=== PATIENT | male | born 1960 | race Caucasian/White ===

== ENCOUNTER 2023-11-09 11:17 | Emergency (ER) | payer MEDICAID ==
[~2023-11-09] VITALS: Ht 182.8 cm; Wt 129.3 kg
[~2023-11-09 11:17] MED LIST: 'XANAX1 MG PO; ABILIFY20 MG PO; ASPIR LOW81 MG PO; BETAPACE120 MG PO; BIAXIN FILMTAB250 MG PO; CARAFATE1 GM PO; CARTIA XT300 MG PO; CARVEDILOL25 MG PO; CEFDINIR300 MG PO; CETIRIZINE10 MG PO; CLARITIN LIQUI-10 MG PO; Carafate1 GM/10 ML PO; Coumadin5 MG PO; DESYREL100 MG PO; FLEXERIL10 MG PO; FLOVENT DISKUS50 MCG INH; FLOVENT HF0.22 MG/AC IH; GEMFIBROZIL600 MG PO; INVOKANA100 M1 PO; LEADER NIC14 MG/24 H TD; LOTRISONE30 ML T; METFORMIN HCL500 M2 PO; MOTRIN600 MG PO; MOTRIN800 MG PO; MULTIPLE VITAM1 EAC2 PO; OXYCODONE HCL10 M1 PO; PERCOCET 325 MG1 TA5 PO; PRILOSEC20 M1 PO; PRILOSEC40 M1 PO; PRILOSEC40 MG PO; SPIRIVA18 MCG IH; TIZANIDINE4 MG PO; VENTOLIN 02.5 MG/3 M INH; VENTOLIN H0.09 MG/AC IH; VENTOLIN HFA INH; VICODIN 5/500 505 MG PO; VICODIN ES 7501 TA1 PO; VITAMIN D5000 UNI1 PO; XARE20MG PO; ZANAFLEX4 M1 PO; ZOCOR20 MG PO; Zofran4 MG PO
[2023-11-09] MEDS ORDERED: METOPROLOL TART50 M1 PO (12:02)
[2023-11-09] MEDS ORDERED: BUMETANIDE1 MG PO (12:03)
[2023-11-09] MEDS ORDERED: AMIODARONE HYD200 MG PO (12:04)
[2023-11-09] MEDS ORDERED: BUSPIRONE HCL10 MG PO (12:04)
[2023-11-09] MEDS ORDERED: GABAPENTIN400 MG PO (12:05)
[2023-11-09] MEDS ORDERED: FEOSOL325 MG PO (12:06)
[2023-11-09] MEDS ORDERED: POTASSIUM CHLO20 ME3 PO (12:07)
[2023-11-09] MEDS ORDERED: PANTOPRAZOLE SO40 MG PO (12:07)
[2023-11-09] MEDS ORDERED: LISINOPRIL5 MG PO (12:08)
[2023-11-09] MEDS ORDERED: Zaroxolyn,Diul2.5 MG PO (12:09)
[2023-11-09] MEDS ORDERED: TRULICITY3 MG/0.5 M SQ (12:11)
[2023-11-09] MEDS ORDERED: LANTUS SOL100 UNIT/1 SC (12:12)
[2023-11-09] MEDS ORDERED: HUMALOG100 UNIT/1 SC (12:13)
[2023-11-09 12:54] LABS: BASO # 0.1 10*3/uL (0.0-0.1); BASO % 0.9 % (0.0-1.0); EOS # 0.1 10*3/uL (0.0-0.4); EOS % 1.8 % (1.0-4.0); HEMATOCRIT 53.2 % (42.0-52.0); LYMPH # 1.1 10*3/uL (1.3-4.4); LYMPH % 14.3 % (27.0-41.0); MEAN CELL VOLUME 90.3 fl (80.0-94.0); MEAN CORPUSCULAR HGB 28.5 pg (27.0-31.0); MEAN CORPUSCULAR HGB CONC 31.6 g/dl (33.0-37.0); MEAN PLATELET VOLUME 10.8 fl (9.6-12.3); MONO # 0.8 10*3/uL (0.1-1.0); MONO % 10.3 % (3.0-9.0); NEUT # 5.6 10*3/uL (2.3-7.9); NEUT % 71.8 % (47.0-73.0); PLATELET COUNT AUTOMATED 246 10*3/uL (130-400); RED BLOOD COUNT 5.89 10*6/uL (4.50-5.90); RED CELL DISTRI WIDTH 13.8 % (0-14.5); WHITE BLOOD COUNT 7.9 10*3/uL (4.8-10.8)
[2023-11-09 13:18] LABS: ALKALINE PHOSPHATASE 95 U/L (46-116); BUN 18 mg/dl (9-23); CHLORIDE 97 mmol/L (98-107); POTASSIUM 3.6 mmol/L (3.4-5.1); SGPT/ALT 80 U/L (5-49); TOTAL PROTEIN 6.7 gm/dL (6.0-8.0)
[2023-11-09] MEDS ORDERED: BENZONATATE100 M1 PO ×2 (15:47→16:02)
[2023-11-09] MEDS ORDERED: VIBRAMYCIN100 MG PO ×2 (15:47→16:02)
[2023-11-09] MEDS ORDERED: MEDROL DOSEPAK4 MG PO ×2 (15:47→16:02)
== END 2023-11-09 15:52 | disposition home or self-care (01) ==
LOC: ED 11:17
PROVIDERS: Nurse Practitioner Family
DX: J20.9 Acute bronchitis, unspecified (principal); R04.2 Hemoptysis; I25.10 Atherosclerotic heart disease of native coronary artery without angina pectoris; I11.0 Hypertensive heart disease with heart failure; I50.9 Heart failure, unspecified; K21.9 Gastro-esophageal reflux disease without esophagitis; E11.9 Type 2 diabetes mellitus without complications; F41.9 Anxiety disorder, unspecified; J44.9 Chronic obstructive pulmonary disease, unspecified; F32.A Depression, unspecified; E78.00 Pure hypercholesterolemia, unspecified; I48.91 Unspecified atrial fibrillation; Z98.890 Other specified postprocedural states; Z95.5 Presence of coronary angioplasty implant and graft; F17.210 Nicotine dependence, cigarettes, uncomplicated

== ENCOUNTER 2024-02-08 17:53 | Inpatient (IN) | payer MEDICAID ==
[~2024-02-08] VITALS: Ht 177.8 cm; Wt 162.0 kg
[2024-02-08] VITALS (11 sets, daily range): BP systolic 86–112; BP diastolic 43–64
[~2024-02-08 17:53] MED LIST changes: +AMIODARONE HYD200 MG PO; +BENZONATATE100 M1 PO; +BUMETANIDE1 MG PO; +BUSPIRONE HCL10 MG PO; +FEOSOL325 MG PO; +GABAPENTIN400 MG PO; +HUMALOG100 UNIT/1 SC; +LANTUS SOL100 UNIT/1 SC; +LISINOPRIL5 MG PO; +MEDROL DOSEPAK4 MG PO; +METOPROLOL TART50 M1 PO; +PANTOPRAZOLE SO40 MG PO; +POTASSIUM CHLO20 ME3 PO; +TRULICITY3 MG/0.5 M SQ; +VIBRAMYCIN100 MG PO; +Zaroxolyn,Diul2.5 MG PO
[2024-02-08 18:09] LABS: ABG BASE EXCESS 7.7 mmol/L (-2.0-2.0)
[2024-02-08 18:12] LABS: BASO % 0.1 % (0.0-1.0); EOS % 0.2 % (1.0-4.0); HEMATOCRIT 39.7 % (42.0-52.0); LYMPH # 0.4 10*3/uL (1.3-4.4); LYMPH % 3.7 % (27.0-41.0); MEAN CELL VOLUME 100.5 fl (80.0-94.0); MEAN CORPUSCULAR HGB 27.8 pg (27.0-31.0); MEAN CORPUSCULAR HGB CONC 27.7 g/dl (33.0-37.0); MEAN PLATELET VOLUME 10.6 fl (9.6-12.3); MONO # 0.8 10*3/uL (0.1-1.0); MONO % 8.2 % (3.0-9.0); NEUT # 8.4 10*3/uL (2.3-7.9); NEUT % 87.2 % (47.0-73.0); PLATELET COUNT AUTOMATED 276 10*3/uL (130-400); RED BLOOD COUNT 3.95 10*6/uL (4.50-5.90); RED CELL DISTRI WIDTH 14.6 % (0-14.5); WHITE BLOOD COUNT 9.6 10*3/uL (4.8-10.8)
[2024-02-08 18:15] LABS: ARTERIAL BLOOD GAS PH 7.147 (7.35-7.45)
[2024-02-08 18:37] LABS: ALKALINE PHOSPHATASE 187 U/L (46-116); BUN 34 mg/dl (9-23); CHLORIDE 99 mmol/L (98-107); LIPASE 33 U/L (12-53); POTASSIUM 5.2 mmol/L (3.4-5.1); SGPT/ALT 50 U/L (5-49); TOTAL PROTEIN 6.4 gm/dL (6.0-8.0)
[2024-02-08] MEDS ORDERED: Ceftriaxone Sodium 1 GM/10 ML SYR IV ONE (18:50)
[2024-02-08] MEDS ORDERED: Albuterol Sulf/Ipratropium 3 ML VIAL NEB ONE (18:50)
[2024-02-08] MEDS ORDERED: methylPREDNISolone sod succ 125 MG VIAL IV ONE (18:50)
[2024-02-08] MEDS ORDERED: GABAPENTIN600 MG PO (18:50)
[2024-02-08] MEDS ORDERED: AZITHROMYCIN 250 ML IV ONE (18:50)
[2024-02-08] MEDS ORDERED: CLARITIN10 MG PO (18:55)
[2024-02-08] MEDS ORDERED: MAGNESIUM OXID400 MG PO (18:56)
[2024-02-08] MEDS ORDERED: OXYCODONE-ACET1 EAC3 PO (18:59)
[2024-02-08] MEDS ORDERED: TRULICITY3 MG/0.5 M SQ (19:00)
[2024-02-08 20:31] LABS: ABG BASE EXCESS 3.2 mmol/L (-2.0-2.0)
[2024-02-08 20:33] LABS: ARTERIAL BLOOD GAS PH 7.184 (7.35-7.45)
[2024-02-08] MEDS ORDERED: PROPOFOL 100 ML IV ONE (21:02)
[2024-02-08] MEDS ORDERED: NOREPINEPHRINE BITARTRATE/D5W 250 ML IV ONE (21:02)
[2024-02-08] MEDS ORDERED: ETOMIDATE 20 MG/10 ML VIAL IV ONE (21:20)
[2024-02-08] MEDS ORDERED: ROCURONIUM BROMIDE 50 MG/5 ML SYRINGE IV ONE (21:20)
[2024-02-08] MEDS ORDERED: PROPOFOL 200 MG/20 ML VIAL IV ONE (21:20)
[2024-02-08] MEDS ORDERED: NOREPINEPHRINE BITARTRATE/D5W 250 ML IV SCH (21:35)
[2024-02-08 22:46] LABS: ABG BASE EXCESS 4.4 mmol/L (-2.0-2.0); ARTERIAL BLOOD GAS PH 7.27 (7.35-7.45)
[2024-02-08] MEDS ORDERED: ACETAMINOPHEN 325 MG/10.15 ML UDC PO PRN (23:50)
[2024-02-08] MEDS ORDERED: Acetaminophen/Hydrocodone 5 MG/325 MG TABLET PO PRN (23:50)
[2024-02-08] MEDS ORDERED: BISACODYL 5 MG TAB PO PRN (23:50)
[2024-02-08] MEDS ORDERED: Midazolam Hydrochloride 5 MG/5 ML VIAL IV PRN (23:55)
[2024-02-08] MEDS ORDERED: ACETAMINOPHEN 650 MG SUPP R PRN (23:55)
[2024-02-08] MEDS ORDERED: PROPOFOL 50 ML IV SCH (23:55)
[2024-02-08] MEDS ORDERED: Albuterol Sulf/Ipratropium 3 ML VIAL NEB SCH (23:55)
[2024-02-09] VITALS (91 sets, daily range): BP systolic 88–121; BP diastolic 41–63
[2024-02-09] MEDS ORDERED: Piperacillin Sodium/Tazobact 50 ML IV SCH ×2 (00:05→02:40)
[2024-02-09] MEDS ORDERED: Vancomycin Hydrochloride 1,000 MG in SODIUM CHLORIDE 0.9% 250 ML IV SCH ×2 (00:05→01:00)
[2024-02-09] MEDS ORDERED: FUROSEMIDE 40 MG/4 ML VIAL IV SCH ×2 (00:05→10:00)
[2024-02-09] MEDS ORDERED: DEXTROSE 10 % IN WATER 250 ML IV PRN (02:15)
[2024-02-09] MEDS ORDERED: FUROSEMIDE 40 MG/4 ML VIAL IV ONE (02:45)
[2024-02-09 05:44] LABS: FREE T4 1.24 ng/dl (0.89-1.76); POTASSIUM 4.8 mmol/L (3.4-5.1); TOTAL PROTEIN 5.9 gm/dL (6.0-8.0)
[2024-02-09 05:45] LABS: VITAMIN D, 25-HYDROXY 25.6 ng/mL (30-100)
[2024-02-09 06:12] LABS: ACT PARTIAL THROMBO TIME 25.6 SECONDS (20.0-32.1)
[2024-02-09 06:13] LABS: HEMATOCRIT 35.9 % (42.0-52.0); MANUAL DIFF REFLEX YES; MEAN CORPUSCULAR HGB 27.6 pg (27.0-31.0); MEAN CORPUSCULAR HGB CONC 28.4 g/dl (33.0-37.0); MEAN PLATELET VOLUME 11.2 fl (9.6-12.3); PLATELET COUNT AUTOMATED 245 10*3/uL (130-400); RED CELL DISTRI WIDTH 14.4 % (0-14.5); WHITE BLOOD COUNT 8.9 10*3/uL (4.8-10.8)
[2024-02-09 06:29] LABS: BURR CELLS FEW; PLATELET SUFFICIENCY NORMAL (NORMAL); POLYCHROMASIA SLIGHT; ROULEAUX SLIGHT; TOTAL CELLS COUNTED 100 #CELLS
[2024-02-09] MEDS ORDERED: INSULIN LISPRO 1 UNIT/0.01 ML SQ SCH (07:30)
[2024-02-09 07:49] LABS: ABG BASE EXCESS 7.9 mmol/L (-2.0-2.0); ARTERIAL BLOOD GAS PH 7.389 (7.35-7.45)
[2024-02-09] MEDS ORDERED: Vancomycin Hydrochloride 1,000 MG VIAL IV ONE (07:49)
[2024-02-09] MEDS ORDERED: SODIUM CHLORIDE 0.9% 250 ML BAG IV ONE (07:49)
[2024-02-09] MEDS ORDERED: Chlorhexidine Gluconate 15 ML MOUTHWASH T SCH (10:00)
[2024-02-09] MEDS ORDERED: methylPREDNISolone sod succ 40 MG VIAL IV SCH (10:00)
[2024-02-09] MEDS ORDERED: Pantoprazole Sodium 40 MG VIAL IV SCH (10:00)
[2024-02-09] MEDS ORDERED: Enoxaparin Sodium 40 MG/0.4 ML SYR SC SCH (10:00)
[2024-02-09] MEDS ORDERED: PROPOFOL 100 ML IV SCH (11:05)
[2024-02-09] MEDS ORDERED: ROCURONIUM BROMIDE 50 MG/5 ML SYRINGE IV ONE (11:47)
[2024-02-09] MEDS ORDERED: ETOMIDATE 20 MG/10 ML VIAL IV ONE (11:47)
[2024-02-09] MEDS ORDERED: PERFLUTREN PROTEIN-A MICROSPHR 3 ML VIAL IV ONE (11:51)
[2024-02-09] MEDS ORDERED: BUDESONIDE 0.5 MG AMP NEB SCH (13:15)
[2024-02-09] MEDS ORDERED: HEEL PROTECTOR DEVICE ONE (15:12)
[2024-02-09] MEDS ORDERED: FOAM BANDAGE HEEL T ONE (15:12)
[2024-02-09] MEDS ORDERED: PROPOFOL IV SCH (21:00)
[2024-02-09] MEDS ORDERED: VANCOMYCIN/WATER FOR INJ (PEG) 350 ML IV SCH (22:00)
[2024-02-09] MEDS ORDERED: NYSTATIN 15 GM BOT T SCH (22:00)
[2024-02-09] MEDS ORDERED: Insulin Glargine, Recombinan 1 UNIT/0.01 ML SC SCH (22:00)
[2024-02-10] VITALS (92 sets, daily range): BP systolic 95–146; BP diastolic 46–66
[2024-02-10] MEDS ORDERED: diphenhydrAMINE hydrochloride 50 MG/ML VIAL IV ONE (01:40)
[2024-02-10 06:27] LABS: BASO % 0.1 % (0.0-1.0); HEMATOCRIT 34.1 % (42.0-52.0); LYMPH # 0.3 10*3/uL (1.3-4.4); LYMPH % 1.8 % (27.0-41.0); MEAN CELL VOLUME 94.5 fl (80.0-94.0); MEAN CORPUSCULAR HGB 28.5 pg (27.0-31.0); MEAN CORPUSCULAR HGB CONC 30.2 g/dl (33.0-37.0); MEAN PLATELET VOLUME 11.1 fl (9.6-12.3); MONO # 1.3 10*3/uL (0.1-1.0); MONO % 8.6 % (3.0-9.0); NEUT # 13.4 10*3/uL (2.3-7.9); NEUT % 89.1 % (47.0-73.0); RED BLOOD COUNT 3.61 10*6/uL (4.50-5.90); RED CELL DISTRI WIDTH 15.2 % (0-14.5); WHITE BLOOD COUNT 15.1 10*3/uL (4.8-10.8)
[2024-02-10 06:45] LABS: PLATELET COUNT AUTOMATED 330 10*3/uL (130-400)
[2024-02-10 06:49] LABS: POTASSIUM 4.5 mmol/L (3.4-5.1); TOTAL PROTEIN 6.1 gm/dL (6.0-8.0)
[2024-02-10 08:01] LABS: ABG BASE EXCESS 6.5 mmol/L (-2.0-2.0); ARTERIAL BLOOD GAS PH 7.36 (7.35-7.45)
[2024-02-10] MEDS ORDERED: Cholecalciferol 5,000 IU CAP (125 MCG) PO SCH (10:00)
[2024-02-10] MEDS ORDERED: ASPIRIN ENTERIC COATED 81 MG TAB PO SCH (10:00)
[2024-02-10] MEDS ORDERED: FUROSEMIDE 40 MG/4 ML VIAL IV SCH ×2 (10:00→14:00)
[2024-02-10] MEDS ORDERED: FLUTICASONE PROPIONATE 100 mcg INHALER INH SCH (10:00)
[2024-02-10] MEDS ORDERED: FUROSEMIDE 40 MG/4 ML VIAL IV ONE (12:00)
[2024-02-10] MEDS ORDERED: DISPOSABLE IV SCH (13:30)
[2024-02-10] MEDS ORDERED: FUROSEMIDE IV SCH (13:30)
[2024-02-11] VITALS (91 sets, daily range): BP systolic 94–129; BP diastolic 44–71
[2024-02-11 06:09] LABS: BASO % 0.1 % (0.0-1.0); EOS % 0.3 % (1.0-4.0); HEMATOCRIT 34.8 % (42.0-52.0); LYMPH # 0.5 10*3/uL (1.3-4.4); LYMPH % 4.9 % (27.0-41.0); MEAN CELL VOLUME 94.8 fl (80.0-94.0); MEAN CORPUSCULAR HGB 27.5 pg (27.0-31.0); MEAN PLATELET VOLUME 11.1 fl (9.6-12.3); MONO # 1.2 10*3/uL (0.1-1.0); MONO % 11.9 % (3.0-9.0); NEUT # 8.1 10*3/uL (2.3-7.9); NEUT % 82.5 % (47.0-73.0); PLATELET COUNT AUTOMATED 268 10*3/uL (130-400); RED BLOOD COUNT 3.67 10*6/uL (4.50-5.90); RED CELL DISTRI WIDTH 15.3 % (0-14.5); WHITE BLOOD COUNT 9.8 10*3/uL (4.8-10.8)
[2024-02-11 07:59] LABS: ALKALINE PHOSPHATASE 146 U/L (46-116); CHLORIDE 96 mmol/L (98-107); POTASSIUM 3.6 mmol/L (3.4-5.1); SGPT/ALT 42 U/L (5-49); TOTAL PROTEIN 6.1 gm/dL (6.0-8.0)
[2024-02-11 08:04] LABS: BUN 29 mg/dl (9-23)
[2024-02-11] MEDS ORDERED: POTASSIUM CHLORIDE IN WATER 100 ML IV SCH (09:00)
[2024-02-11 09:06] LABS: ABG BASE EXCESS 16.3 mmol/L (-2.0-2.0); ARTERIAL BLOOD GAS PH 7.416 (7.35-7.45)
[2024-02-11] MEDS ORDERED: Enoxaparin Sodium 30 MG/0.3 ML SYR SC SCH (10:00)
[2024-02-11 14:26] LABS: BUN 26 mg/dl (9-23); CHLORIDE 96 mmol/L (98-107); POTASSIUM 3.9 mmol/L (3.4-5.1)
[2024-02-11] MEDS ORDERED: PROPOFOL 100 ML IV ONE (21:22)
[2024-02-12] VITALS (28 sets, daily range): BP systolic 109–124; BP diastolic 56–69
[2024-02-12 06:23] LABS: ALKALINE PHOSPHATASE 133 U/L (46-116); BUN 22 mg/dl (9-23); CHLORIDE 95 mmol/L (98-107); POTASSIUM 3.6 mmol/L (3.4-5.1); SGPT/ALT 38 U/L (5-49); TOTAL PROTEIN 5.9 gm/dL (6.0-8.0)
[2024-02-12 06:31] LABS: BASO % 0.2 % (0.0-1.0); EOS # 0.1 10*3/uL (0.0-0.4); EOS % 1.7 % (1.0-4.0); HEMATOCRIT 33.6 % (42.0-52.0); LYMPH # 0.4 10*3/uL (1.3-4.4); LYMPH % 6.4 % (27.0-41.0); MEAN CELL VOLUME 97.7 fl (80.0-94.0); MEAN CORPUSCULAR HGB 27.6 pg (27.0-31.0); MEAN CORPUSCULAR HGB CONC 28.3 g/dl (33.0-37.0); MEAN PLATELET VOLUME 10.9 fl (9.6-12.3); MONO # 0.6 10*3/uL (0.1-1.0); NEUT # 4.8 10*3/uL (2.3-7.9); PLATELET COUNT AUTOMATED 225 10*3/uL (130-400); RED BLOOD COUNT 3.44 10*6/uL (4.50-5.90); RED CELL DISTRI WIDTH 15.1 % (0-14.5); WHITE BLOOD COUNT 5.9 10*3/uL (4.8-10.8)
[2024-02-12 08:50] LABS: ABG BASE EXCESS 14.2 mmol/L (-2.0-2.0); ARTERIAL BLOOD GAS PH 7.444 (7.35-7.45)
[2024-02-12] MEDS ORDERED: Ceftriaxone Sodium 2 GM in SYRINGE INFUSION 20 ML IV SCH (12:00)
[2024-02-12] MEDS ORDERED: POTASSIUM CHLORIDE 20 MEQ TAB NG ONE (15:45)
[2024-02-13] VITALS (7 sets, daily range): BP systolic 111–128; BP diastolic 63–73
[2024-02-13 05:32] LABS: ALKALINE PHOSPHATASE 130 U/L (46-116); BUN 22 mg/dl (9-23); CHLORIDE 95 mmol/L (98-107); POTASSIUM 3.7 mmol/L (3.4-5.1); SGPT/ALT 38 U/L (5-49); TOTAL PROTEIN 6.1 gm/dL (6.0-8.0)
[2024-02-13 06:03] LABS: BASO % 0.2 % (0.0-1.0); EOS # 0.1 10*3/uL (0.0-0.4); EOS % 1.7 % (1.0-4.0); HEMATOCRIT 33.1 % (42.0-52.0); LYMPH # 0.3 10*3/uL (1.3-4.4); LYMPH % 5.9 % (27.0-41.0); MEAN CELL VOLUME 97.1 fl (80.0-94.0); MEAN CORPUSCULAR HGB 27.6 pg (27.0-31.0); MEAN CORPUSCULAR HGB CONC 28.4 g/dl (33.0-37.0); MEAN PLATELET VOLUME 11.1 fl (9.6-12.3); MONO # 0.5 10*3/uL (0.1-1.0); MONO % 9.3 % (3.0-9.0); NEUT # 4.7 10*3/uL (2.3-7.9); NEUT % 82.4 % (47.0-73.0); PLATELET COUNT AUTOMATED 218 10*3/uL (130-400); RED BLOOD COUNT 3.41 10*6/uL (4.50-5.90); RED CELL DISTRI WIDTH 15.2 % (0-14.5); WHITE BLOOD COUNT 5.7 10*3/uL (4.8-10.8)
[2024-02-13] MEDS ORDERED: IOHEXOL 300 MG/ML 100 ML VIAL IV ONE (11:40)
[2024-02-13] MEDS ORDERED: BARIUM SULFATE 2% 450 ML BOT PO SCH (12:00)
[2024-02-13] MEDS ORDERED: PROPOFOL IV SCH (22:00)
[2024-02-13] MEDS ORDERED: FOAM BANDAGE 1 EACH BANDAGE T ONE (22:32)
[2024-02-14] VITALS (7 sets, daily range): BP systolic 112–139; BP diastolic 53–81
[2024-02-14 04:25] LABS: BASO % 0.3 % (0.0-1.0); EOS # 0.2 10*3/uL (0.0-0.4); EOS % 3.1 % (1.0-4.0); HEMATOCRIT 33.9 % (42.0-52.0); LYMPH # 0.4 10*3/uL (1.3-4.4); LYMPH % 7.6 % (27.0-41.0); MEAN CELL VOLUME 96.3 fl (80.0-94.0); MEAN CORPUSCULAR HGB 27.8 pg (27.0-31.0); MEAN CORPUSCULAR HGB CONC 28.9 g/dl (33.0-37.0); MEAN PLATELET VOLUME 10.8 fl (9.6-12.3); MONO # 0.5 10*3/uL (0.1-1.0); MONO % 9.3 % (3.0-9.0); NEUT # 4.6 10*3/uL (2.3-7.9); NEUT % 79.2 % (47.0-73.0); PLATELET COUNT AUTOMATED 229 10*3/uL (130-400); RED BLOOD COUNT 3.52 10*6/uL (4.50-5.90); RED CELL DISTRI WIDTH 15.2 % (0-14.5); WHITE BLOOD COUNT 5.8 10*3/uL (4.8-10.8)
[2024-02-14 04:49] LABS: ALKALINE PHOSPHATASE 137 U/L (46-116); BUN 24 mg/dl (9-23); CHLORIDE 96 mmol/L (98-107); POTASSIUM 3.4 mmol/L (3.4-5.1); SGPT/ALT 43 U/L (5-49); TOTAL PROTEIN 6.2 gm/dL (6.0-8.0)
[2024-02-14 08:05] LABS: ARTERIAL BLOOD GAS PH 7.486 (7.35-7.45)
[2024-02-14] MEDS ORDERED: Enoxaparin Sodium 40 MG/0.4 ML SYR SC SCH (10:00)
[2024-02-14] MEDS ORDERED: Enoxaparin Sodium 60 MG/0.6 ML SYR SC SCH (10:00)
[2024-02-15] VITALS (8 sets, daily range): BP systolic 92–132; BP diastolic 45–75
[2024-02-15 04:25] LABS: BASO % 0.3 % (0.0-1.0); EOS # 0.2 10*3/uL (0.0-0.4); HEMATOCRIT 33.2 % (42.0-52.0); LYMPH # 0.5 10*3/uL (1.3-4.4); LYMPH % 9.1 % (27.0-41.0); MEAN CORPUSCULAR HGB CONC 29.2 g/dl (33.0-37.0); MONO # 0.5 10*3/uL (0.1-1.0); MONO % 8.6 % (3.0-9.0); NEUT # 4.5 10*3/uL (2.3-7.9); NEUT % 78.5 % (47.0-73.0); PLATELET COUNT AUTOMATED 204 10*3/uL (130-400); RED BLOOD COUNT 3.46 10*6/uL (4.50-5.90); WHITE BLOOD COUNT 5.7 10*3/uL (4.8-10.8)
[2024-02-15 04:48] LABS: ALKALINE PHOSPHATASE 138 U/L (46-116); BUN 24 mg/dl (9-23); CHLORIDE 97 mmol/L (98-107); POTASSIUM 3.3 mmol/L (3.4-5.1); SGPT/ALT 59 U/L (5-49); TOTAL PROTEIN 6.2 gm/dL (6.0-8.0)
[2024-02-15] MEDS ORDERED: POTASSIUM CHLORIDE 20 MEQ TAB PO ONE (07:45)
[2024-02-15] MEDS ORDERED: FOAM BANDAGE HEEL T ONE (08:14)
[2024-02-16] VITALS: BP 127/60
[2024-02-16 04:00] VITALS: BP 115/60
[2024-02-16 05:32] LABS: ALKALINE PHOSPHATASE 151 U/L (46-116); BUN 23 mg/dl (9-23); CHLORIDE 98 mmol/L (98-107); POTASSIUM 3.3 mmol/L (3.4-5.1); SGPT/ALT 76 U/L (5-49); TOTAL PROTEIN 6.3 gm/dL (6.0-8.0)
[2024-02-16 06:05] LABS: BASO % 0.5 % (0.0-1.0); EOS # 0.2 10*3/uL (0.0-0.4); EOS % 3.7 % (1.0-4.0); HEMATOCRIT 33.9 % (42.0-52.0); LYMPH # 0.5 10*3/uL (1.3-4.4); MEAN CELL VOLUME 95.2 fl (80.0-94.0); MEAN CORPUSCULAR HGB 27.5 pg (27.0-31.0); MEAN CORPUSCULAR HGB CONC 28.9 g/dl (33.0-37.0); MEAN PLATELET VOLUME 11.3 fl (9.6-12.3); MONO # 0.6 10*3/uL (0.1-1.0); MONO % 9.6 % (3.0-9.0); NEUT # 4.4 10*3/uL (2.3-7.9); NEUT % 76.3 % (47.0-73.0); PLATELET COUNT AUTOMATED 228 10*3/uL (130-400); RED BLOOD COUNT 3.56 10*6/uL (4.50-5.90); RED CELL DISTRI WIDTH 14.9 % (0-14.5); WHITE BLOOD COUNT 5.8 10*3/uL (4.8-10.8)
[2024-02-16] MEDS ORDERED: POTASSIUM CHLORIDE 20 MEQ TAB PO ONE (07:15)
[2024-02-16 08:00] VITALS: BP 118/63
[2024-02-16] MEDS ORDERED: POTASSIUM CHLORIDE 20 MEQ TAB PO SCH (10:00)
[2024-02-16 11:54] LABS: ABG BASE EXCESS 10.6 mmol/L (-2.0-2.0); ARTERIAL BLOOD GAS PH 7.465 (7.35-7.45)
[2024-02-16] MEDS ORDERED: POTASSIUM CHLORIDE 20 MEQ TAB NG ONE (12:25)
[2024-02-16 16:00] VITALS: BP 138/78
[2024-02-16] MEDS ORDERED: FUROSEMIDE 40 MG/4 ML VIAL IV SCH (18:00)
[2024-02-16 20:00] VITALS: BP 147/76
[2024-02-16] MEDS ORDERED: Menthol/Zinc Oxide 4 GM THIN T SCH (22:00)
[2024-02-16] MEDS ORDERED: Metoprolol Tartrate 50 MG TAB PO SCH (22:00)
[2024-02-16] MEDS ORDERED: GABAPENTIN 600 MG TAB PO SCH (22:00)
[2024-02-17] VITALS: BP 127/64
[2024-02-17 04:00] VITALS: BP 143/64
[2024-02-17 05:14] LABS: ALKALINE PHOSPHATASE 155 U/L (46-116); BUN 23 mg/dl (9-23); CHLORIDE 99 mmol/L (98-107); CHOLESTEROL 248 mg/dL (<200); LDL CHOLESTEROL 149 mg/dL (9-159); POTASSIUM 3.5 mmol/L (3.4-5.1); SGPT/ALT 81 U/L (5-49); TOTAL PROTEIN 8.9 gm/dL (6.0-8.0); TRIGLYCERIDES 321 mg/dl (<150)
[2024-02-17] MEDS ORDERED: Pantoprazole Sodium 20 MG TAB PO SCH (06:00)
[2024-02-17 06:11] LABS: BASO % 0.5 % (0.0-1.0); EOS # 0.2 10*3/uL (0.0-0.4); EOS % 3.5 % (1.0-4.0); HEMATOCRIT 36.5 % (42.0-52.0); LYMPH # 0.7 10*3/uL (1.3-4.4); MEAN CELL VOLUME 95.1 fl (80.0-94.0); MEAN CORPUSCULAR HGB 26.8 pg (27.0-31.0); MEAN CORPUSCULAR HGB CONC 28.2 g/dl (33.0-37.0); MEAN PLATELET VOLUME 11.5 fl (9.6-12.3); MONO # 0.6 10*3/uL (0.1-1.0); MONO % 8.8 % (3.0-9.0); PLATELET COUNT AUTOMATED 256 10*3/uL (130-400); RED BLOOD COUNT 3.84 10*6/uL (4.50-5.90); RED CELL DISTRI WIDTH 14.4 % (0-14.5); WHITE BLOOD COUNT 6.6 10*3/uL (4.8-10.8)
[2024-02-17 08:00] VITALS: BP 146/79
[2024-02-17] MEDS ORDERED: busPIRone Hydrochloride 15 MG TAB PO SCH (10:00)
[2024-02-17] MEDS ORDERED: SILICONE CONTACT LAYER WOUND DRESSING (VERSATEL) ONE (11:50)
[2024-02-17] MEDS ORDERED: LEPTOSPERMUM HONEY 0.5 OZ TUBE T ONE (11:50)
[2024-02-17] MEDS ORDERED: FOAM BANDAGE 5X5 T ONE (11:50)
[2024-02-17 12:00] VITALS: BP 146/77
[2024-02-17 16:00] VITALS: BP 136/78
[2024-02-17 20:00] VITALS: BP 132/69
[2024-02-18] VITALS: BP 126/74
[2024-02-18] MEDS ORDERED: Acetaminophen/Hydrocodone 5 MG/325 MG TABLET PO PRN (01:30)
[2024-02-18] MEDS ORDERED: METHOCARBAMOL 750 MG TAB PO PRN (01:35)
[2024-02-18 05:23] LABS: ALKALINE PHOSPHATASE 158 U/L (46-116); BUN 22 mg/dl (9-23); CHLORIDE 98 mmol/L (98-107); POTASSIUM 3.2 mmol/L (3.4-5.1); SGPT/ALT 105 U/L (5-49); TOTAL PROTEIN 6.4 gm/dL (6.0-8.0)
[2024-02-18 05:59] LABS: BASO % 0.4 % (0.0-1.0); EOS # 0.2 10*3/uL (0.0-0.4); EOS % 2.8 % (1.0-4.0); HEMATOCRIT 35.5 % (42.0-52.0); LYMPH # 0.6 10*3/uL (1.3-4.4); LYMPH % 8.2 % (27.0-41.0); MEAN CELL VOLUME 94.2 fl (80.0-94.0); MEAN CORPUSCULAR HGB 27.3 pg (27.0-31.0); MEAN PLATELET VOLUME 11.4 fl (9.6-12.3); MONO # 0.6 10*3/uL (0.1-1.0); MONO % 8.6 % (3.0-9.0); NEUT # 5.4 10*3/uL (2.3-7.9); NEUT % 78.7 % (47.0-73.0); PLATELET COUNT AUTOMATED 259 10*3/uL (130-400); RED BLOOD COUNT 3.77 10*6/uL (4.50-5.90); RED CELL DISTRI WIDTH 14.6 % (0-14.5); WHITE BLOOD COUNT 6.9 10*3/uL (4.8-10.8)
[2024-02-18] MEDS ORDERED: Pantoprazole Sodium 40 MG TAB PO SCH (06:00)
[2024-02-18 08:00] VITALS: BP 131/77
[2024-02-18] MEDS ORDERED: POTASSIUM CHLORIDE 20 MEQ TAB PO ONE (08:10)
[2024-02-18 12:00] VITALS: BP 140/77
[2024-02-18 16:00] VITALS: BP 138/74
[2024-02-18 20:00] VITALS: BP 135/71
[2024-02-19] VITALS: BP 113/71
[2024-02-19] MEDS ORDERED: Benzocaine/Menthol 1 LOZ LOZENGE PO PRN (05:35)
[2024-02-19 06:07] LABS: BASO % 0.7 % (0.0-1.0); EOS # 0.2 10*3/uL (0.0-0.4); EOS % 2.9 % (1.0-4.0); HEMATOCRIT 35.4 % (42.0-52.0); LYMPH # 0.6 10*3/uL (1.3-4.4); MEAN CELL VOLUME 93.9 fl (80.0-94.0); MEAN CORPUSCULAR HGB 26.8 pg (27.0-31.0); MEAN CORPUSCULAR HGB CONC 28.5 g/dl (33.0-37.0); MEAN PLATELET VOLUME 11.4 fl (9.6-12.3); MONO # 0.6 10*3/uL (0.1-1.0); MONO % 9.6 % (3.0-9.0); NEUT # 4.3 10*3/uL (2.3-7.9); NEUT % 74.1 % (47.0-73.0); PLATELET COUNT AUTOMATED 249 10*3/uL (130-400); RED BLOOD COUNT 3.77 10*6/uL (4.50-5.90); RED CELL DISTRI WIDTH 14.4 % (0-14.5); WHITE BLOOD COUNT 5.8 10*3/uL (4.8-10.8)
[2024-02-19 06:10] LABS: ALKALINE PHOSPHATASE 155 U/L (46-116); BUN 25 mg/dl (9-23); CHLORIDE 96 mmol/L (98-107); POTASSIUM 3.3 mmol/L (3.4-5.1); SGPT/ALT 117 U/L (5-49); TOTAL PROTEIN 6.4 gm/dL (6.0-8.0)
[2024-02-19] MEDS ORDERED: POTASSIUM CHLORIDE 20 MEQ TAB PO ONE (07:15)
[2024-02-19 08:00] VITALS: BP 126/60
[2024-02-19 12:00] VITALS: BP 126/64
[2024-02-19 16:00] VITALS: BP 118/69
[2024-02-19 20:00] VITALS: BP 125/50
[2024-02-20] VITALS: BP 115/57
[2024-02-20 06:35] LABS: BASO # 0.1 10*3/uL (0.0-0.1); BASO % 0.9 % (0.0-1.0); EOS # 0.2 10*3/uL (0.0-0.4); EOS % 2.7 % (1.0-4.0); HEMATOCRIT 36.4 % (42.0-52.0); LYMPH # 0.6 10*3/uL (1.3-4.4); LYMPH % 9.6 % (27.0-41.0); MEAN CELL VOLUME 93.1 fl (80.0-94.0); MEAN CORPUSCULAR HGB 26.6 pg (27.0-31.0); MEAN CORPUSCULAR HGB CONC 28.6 g/dl (33.0-37.0); MEAN PLATELET VOLUME 11.2 fl (9.6-12.3); MONO # 0.5 10*3/uL (0.1-1.0); MONO % 7.9 % (3.0-9.0); NEUT # 4.5 10*3/uL (2.3-7.9); NEUT % 76.7 % (47.0-73.0); NUCLEATED RED BLOOD CELL 0.3 % (0.0-0.0); PLATELET COUNT AUTOMATED 272 10*3/uL (130-400); RED BLOOD COUNT 3.91 10*6/uL (4.50-5.90); RED CELL DISTRI WIDTH 14.5 % (0-14.5); WHITE BLOOD COUNT 5.8 10*3/uL (4.8-10.8)
[2024-02-20 07:00] LABS: ALKALINE PHOSPHATASE 156 U/L (46-116); BUN 22 mg/dl (9-23); CHLORIDE 96 mmol/L (98-107); POTASSIUM 3.3 mmol/L (3.4-5.1); SGPT/ALT 123 U/L (5-49); TOTAL PROTEIN 6.7 gm/dL (6.0-8.0)
[2024-02-20] MEDS ORDERED: POTASSIUM CHLORIDE 20 MEQ TAB PO ONE (07:10)
[2024-02-20 08:00] VITALS: BP 94/74
[2024-02-20] MEDS ORDERED: FUROSEMIDE 40 MG TAB PO SCH (10:00)
[2024-02-20 12:00] VITALS: BP 106/57
[2024-02-20] MEDS ORDERED: NYSTATIN 15 GM BOT T SCH (22:00)
== END 2024-02-20 16:56 | disposition home health service (06) | DRG 720 ==
LOC: ED 17:53 → EDHOLD 23:08 → ICCU 23:08 → 5E 02-18 20:50
PROVIDERS: Emergency Medicine; Family Medicine; Internal Medicine; Internal Medicine Critical Care Medicine; Internal Medicine Hematology & Oncology; Student in an Organized Health Care Education/Training Program; ADMIT Internal Medicine; ATTEND Internal Medicine
PROC: 5A0935A Assistance with Respiratory Ventilation, Less than 24 Consecutive Hours, High Flow/Velocity Cannula (ICD-10-PCS; principal; 2024-02-16)
PROC: 02HV33Z Insertion of Infusion Device into Superior Vena Cava, Percutaneous Approach (ICD-10-PCS; 2024-02-16)
PROC: B548ZZA Ultrasonography of Superior Vena Cava, Guidance (ICD-10-PCS; 2024-02-16)
PROC: 5A1955Z Respiratory Ventilation, Greater than 96 Consecutive Hours (ICD-10-PCS; 2024-02-16)
PROC: 0BH17EZ Insertion of Endotracheal Airway into Trachea, Via Natural or Artificial Opening (ICD-10-PCS; 2024-02-16)
DX: A41.9 Sepsis, unspecified organism (principal); J96.21 Acute and chronic respiratory failure with hypoxia; J96.22 Acute and chronic respiratory failure with hypercapnia; J69.0 Pneumonitis due to inhalation of food and vomit; J44.1 Chronic obstructive pulmonary disease with (acute) exacerbation; D53.9 Nutritional anemia, unspecified; G93.41 Metabolic encephalopathy; Z20.822 Contact with and (suspected) exposure to COVID-19; R65.21 Severe sepsis with septic shock; F41.1 Generalized anxiety disorder; I48.0 Paroxysmal atrial fibrillation; I95.9 Hypotension, unspecified; E87.5 Hyperkalemia; E11.65 Type 2 diabetes mellitus with hyperglycemia; J44.0 Chronic obstructive pulmonary disease with (acute) lower respiratory infection; E78.2 Mixed hyperlipidemia; I11.0 Hypertensive heart disease with heart failure; S31.30XA Unspecified open wound of scrotum and testes, initial encounter; N17.9 Acute kidney failure, unspecified; E55.9 Vitamin D deficiency, unspecified; I50.43 Acute on chronic combined systolic (congestive) and diastolic (congestive) heart failure; E66.2 Morbid (severe) obesity with alveolar hypoventilation; E43 Unspecified severe protein-calorie malnutrition; E87.1 Hypo-osmolality and hyponatremia; E87.6 Hypokalemia; Z79.4 Long term (current) use of insulin; Z82.49 Family history of ischemic heart disease and other diseases of the circulatory system; X58.XXXA Exposure to other specified factors, initial encounter; Y93.89 Activity, other specified; Y92.89 Other specified places as the place of occurrence of the external cause; Y99.8 Other external cause status; Z68.43 Body mass index [BMI] 50.0-59.9, adult

== ENCOUNTER → 2024-03-27 | Outpatient (CLI) | payer MEDICAID ==
[~2024-03-27] MED LIST changes: +CLARITIN10 MG PO; +GABAPENTIN600 MG PO; +MAGNESIUM OXID400 MG PO; +OXYCODONE-ACET1 EAC3 PO
== END | disposition home or self-care (01) ==
LOC: RAD 15:37
PROVIDERS: ATTEND Student in an Organized Health Care Education/Training Program
DX: M47.817 Spondylosis without myelopathy or radiculopathy, lumbosacral region (principal); M48.07 Spinal stenosis, lumbosacral region

== ENCOUNTER 2024-04-03 16:01 | Inpatient (IN) | payer MEDICAID ==
[~2024-04-03] VITALS: Ht 182.8 cm; Wt 151.0 kg
[2024-04-03 16:53] VITALS: BP 135/64
[2024-04-03 17:24] LABS: BASO % 0.5 % (0.0-1.0); EOS # 0.1 10*3/uL (0.0-0.4); HEMATOCRIT 37.7 % (42.0-52.0); LYMPH # 0.6 10*3/uL (1.3-4.4); MEAN CELL VOLUME 82.5 fl (80.0-94.0); MEAN CORPUSCULAR HGB 22.8 pg (27.0-31.0); MEAN CORPUSCULAR HGB CONC 27.6 g/dl (33.0-37.0); MEAN PLATELET VOLUME 10.7 fl (9.6-12.3); MONO # 0.7 10*3/uL (0.1-1.0); MONO % 8.4 % (3.0-9.0); NEUT # 6.7 10*3/uL (2.3-7.9); NEUT % 82.6 % (47.0-73.0); PLATELET COUNT AUTOMATED 386 10*3/uL (130-400); RED BLOOD COUNT 4.57 10*6/uL (4.50-5.90); RED CELL DISTRI WIDTH 17.8 % (0-14.5); WHITE BLOOD COUNT 8.1 10*3/uL (4.8-10.8)
[2024-04-03] MEDS ORDERED: IOHEXOL 300 MG/ML 100 ML VIAL IV ONE (17:25)
[2024-04-03 17:35] LABS: ACT PARTIAL THROMBO TIME 23.6 SECONDS (20.0-32.1)
[2024-04-03 17:44] LABS: ALKALINE PHOSPHATASE 148 U/L (46-116); BUN 21 mg/dl (9-23); CHLORIDE 101 mmol/L (98-107); LIPASE 47 U/L (12-53); POTASSIUM 3.6 mmol/L (3.4-5.1); SGPT/ALT 29 U/L (5-49); TOTAL PROTEIN 6.6 gm/dL (6.0-8.0)
[2024-04-03 17:45] LABS: ETHYL ALCOHOL < 3.0 mg/dl (<3)
[2024-04-03] MEDS ORDERED: Midazolam Hydrochloride 2 MG/2 ML VIAL IV ONE (18:15)
[2024-04-03] MEDS ORDERED: FUROSEMIDE 40 MG/4 ML VIAL IV ONE (19:35)
[2024-04-03] MEDS ORDERED: Piperacillin Sodium/Tazobact 50 ML IV ONE (19:35)
[2024-04-03] MEDS ORDERED: Doxycycline Hyclate 100 MG in SODIUM CHLORIDE 0.9% 250 ML IV ONE (20:03)
[2024-04-03 20:17] LABS: BILIRUBIN Negative (Negative); BLOOD Negative (Negative); CLARITY Clear (Clear); COLOR Yellow (Yellow); GLUCOSE Negative (Negative); KETONE Negative (Negative); LEUKO ESTERASE Negative (Negative); NITRITE Negative (Negative); PH 5.5 (4.5-8.0); SPECIFIC GRAVITY >= 1.030 (1.001-1.030)
[2024-04-03 20:28] LABS: MUCOUS 1+
[2024-04-03 20:45] VITALS: BP 110/74
[2024-04-04] MEDS ORDERED: BISACODYL 5 MG TAB PO PRN (01:20)
[2024-04-04] MEDS ORDERED: Ondansetron Hydrochloride 4 MG/2 ML VIAL IV PRN (01:20)
[2024-04-04] MEDS ORDERED: ACETAMINOPHEN 650 MG SUPP R PRN (01:20)
[2024-04-04] MEDS ORDERED: TEMAZEPAM 15 MG CAP PO PRN (01:20)
[2024-04-04] MEDS ORDERED: MORPHINE Sulfate 2 MG/ML SYR IV PRN (01:20)
[2024-04-04] MEDS ORDERED: DEXTROSE 10 % IN WATER 250 ML IV PRN (01:20)
[2024-04-04] MEDS ORDERED: Acetaminophen/Hydrocodone 5 MG/325 MG TABLET PO PRN (01:20)
[2024-04-04] MEDS ORDERED: Magnesium Hydroxide 30 ML UDC PO PRN (01:20)
[2024-04-04] MEDS ORDERED: ACETAMINOPHEN 325 MG TAB PO PRN (01:20)
[2024-04-04] MEDS ORDERED: BISACODYL 10 MG SUPP R PRN (01:20)
[2024-04-04] MEDS ORDERED: Ceftriaxone Sodium 1 GM in SYRINGE INFUSION 10 ML IV SCH (02:00)
[2024-04-04 02:41] VITALS: BP 94/48
[2024-04-04] MEDS ORDERED: Pantoprazole Sodium 40 MG TAB PO SCH (06:00)
[2024-04-04] MEDS ORDERED: INSULIN LISPRO 1 UNIT/0.01 ML SQ SCH (07:30)
[2024-04-04] MEDS ORDERED: Doxycycline Hyclate 100 MG in SODIUM CHLORIDE 0.9% 250 ML IV SCH (10:00)
[2024-04-04] MEDS ORDERED: FUROSEMIDE 40 MG/4 ML VIAL IV SCH (10:00)
[2024-04-04] MEDS ORDERED: Enoxaparin Sodium 40 MG/0.4 ML SYR SC SCH (10:00)
== END 2024-04-04 06:37 | disposition left against medical advice (07) | DRG 194 ==
LOC: ED 16:01 → EDHOLD 04-04 00:38
PROVIDERS: Internal Medicine; ADMIT Internal Medicine; ATTEND Internal Medicine
DX: I13.0 Hypertensive heart and chronic kidney disease with heart failure and stage 1 through stage 4 chronic kidney disease, or unspecified chronic kidney disease (principal); I50.33 Acute on chronic diastolic (congestive) heart failure; K65.2 Spontaneous bacterial peritonitis; L03.311 Cellulitis of abdominal wall; J91.8 Pleural effusion in other conditions classified elsewhere; R18.8 Other ascites; I48.92 Unspecified atrial flutter; E87.29 Other acidosis; D64.9 Anemia, unspecified; N18.31 Chronic kidney disease, stage 3a; Z68.42 Body mass index [BMI] 45.0-49.9, adult; E11.65 Type 2 diabetes mellitus with hyperglycemia; J44.9 Chronic obstructive pulmonary disease, unspecified; E78.5 Hyperlipidemia, unspecified; F41.1 Generalized anxiety disorder; K21.9 Gastro-esophageal reflux disease without esophagitis; I48.0 Paroxysmal atrial fibrillation; E11.22 Type 2 diabetes mellitus with diabetic chronic kidney disease; Z88.1 Allergy status to other antibiotic agents; Z88.6 Allergy status to analgesic agent; Z88.8 Allergy status to other drugs, medicaments and biological substances; Z79.82 Long term (current) use of aspirin; Z79.4 Long term (current) use of insulin; Z79.899 Other long term (current) drug therapy; Z82.49 Family history of ischemic heart disease and other diseases of the circulatory system; Z87.891 Personal history of nicotine dependence; Z79.51 Long term (current) use of inhaled steroids

== ENCOUNTER → 2024-07-05 | Outpatient (CLI) | payer MEDICAID ==
[~2024-07-05] MED LIST changes: +ACETAZOLAMIDE250 MG PO; +ATORVASTATIN CA40 M1 PO; +FEROSUL325 MG PO; +LASIX80 MG PO; +OXYGEN NAS
== END | disposition home or self-care (01) ==
LOC: LAB 10:51
PROVIDERS: ATTEND Student in an Organized Health Care Education/Training Program
DX: R25.1 Tremor, unspecified (principal)

== ENCOUNTER → 2024-07-20 | Outpatient (CLI) | payer MEDICAID ==
[2024-07-20 11:53] LABS: BUN 26 mg/dl (9-23); CHLORIDE 106 mmol/L (98-107); POTASSIUM 3.7 mmol/L (3.4-5.1)
== END | disposition home or self-care (01) ==
LOC: LAB 11:09
PROVIDERS: ATTEND Student in an Organized Health Care Education/Training Program
DX: E78.5 Hyperlipidemia, unspecified (principal); R25.1 Tremor, unspecified; E87.8 Other disorders of electrolyte and fluid balance, not elsewhere classified

== ENCOUNTER → 2025-01-17 | Outpatient (CLI) | payer MEDICAID | END | disposition home or self-care (01) | LOC: RAD 13:39 | PROVIDERS: ATTEND Student in an Organized Health Care Education/Training Program | DX: M25.872 Other specified joint disorders, left ankle and foot (principal); M79.672 Pain in left foot ==

== ENCOUNTER → 2025-01-29 | Outpatient (CLI) | payer MEDICAID | END | disposition home or self-care (01) | LOC: RAD 12:02 | PROVIDERS: ATTEND Student in an Organized Health Care Education/Training Program | DX: J98.11 Atelectasis (principal); R09.89 Other specified symptoms and signs involving the circulatory and respiratory systems; R06.02 Shortness of breath; R05.9 Cough, unspecified; I51.7 Cardiomegaly ==

== ENCOUNTER → 2025-07-11 | Outpatient (CLI) | payer OTHER, MEDICAID | LOC: RAD 12:21 | PROVIDERS: ATTEND Student in an Organized Health Care Education/Training Program | DX: M25.572 Pain in left ankle and joints of left foot (principal); M79.672 Pain in left foot ==